=== PATIENT | female | born 1990 ===

== ENCOUNTER 2017-04-13 13:06 | Emergency (ER) | payer MEDICAID ==
[2017-04-13 13:21] VITALS: BP 104/70; PULSE 50; RESP 19; TEMP 98.2; O2SAT 98
--- NOTE | 2017-04-13 13:59 | ED PDOC ---
Arrival/HPI - General Chief Complaint: Wound Check Time Seen by Provider: 04/13/17 13:26 Historian: Patient, Spouse - History of Present Illness Narrative History of Present Illness (Text): 04/13/17 13:26 This 27 yo presents to this ED for wound check. Patient stated she had a facial laceration repaired x 2 days, and she was recommended to have wound check in 2 days. Patient stated wound is healing well. Denies new complains. Time/Duration: < week Past Medical History - Provider Review Nursing Documentation Reviewed: Yes - Infectious Disease Hx of Infectious Diseases: None - Psychiatric Hx Substance Use: No - Surgical History Other/Comment: 1 vaginal - Anesthesia Hx Anesthesia: No Family/Social History - Physician Review Nursing Documentation Reviewed: Yes Family/Social History: No Known Family HX Smoking Status: Never Smoked Hx Alcohol Use: Yes Frequency of alcohol use: Socially Hx Substance Use: No Allergies/Home Meds Allergies/Adverse Reactions: Allergies No Known Allergies Allergy (Verified 04/13/17 13:14) Home Medications: Home Meds Medication Instructions Recorded Confirmed Cephalexin [Keflex] 500 mg PO DAILY 04/13/17 04/13/17 Ibuprofen [Motrin Tab] 600 mg PO DAILY 04/13/17 04/13/17 Review of Systems - Review of Systems Constitutional: Normal. absent: Fatigue, Weight Change, Fevers Eyes: Normal ENT: Normal Respiratory: Normal Cardiovascular: Normal Gastrointestinal: Normal Genitourinary Female: Normal Musculoskeletal: Normal Skin: Other (Facial wound recheck) Neurological: Normal Endocrine: Normal Hemo/Lymphatic: Normal Psychiatric: Normal Physical Exam Vital Signs Temp Pulse Resp BP Pulse Ox 04/13/17 13:21 98.2 F 50 L 19 104/70 98 Temperature: Afebrile Blood Pressure: Normal Pulse: Regular Respiratory Rate: Normal Appearance: Positive for: Well-Appearing, Non-Toxic, Comfortable Pain Distress: None Mental Status: Positive for: Alert and Oriented X 3 - Systems Exam Head: Present: Normocephalic, Ecchymosis (right inferior orbital area. No raccoon sign. no batle sign), Other ((+) healing wound right forehead, absorbable sutures) Pupils: Present: PERRL, Other (no hyphema) Extroacular Muscles: Present: EOMI Conjunctiva: Present: Normal Mouth: Present: Moist Mucous Membranes Neck: Present: Normal Range of Motion Upper Extremity: Present: Normal Inspection, Normal ROM, NORMAL PULSES, Neurovascularly Intact, Capillary Refill < 2s Lower Extremity: Present: Normal Inspection, NORMAL PULSES, Normal ROM Neurological: Present: GCS=15, CN II-XII Intact, Speech Normal, Motor Func Grossly Intact, Normal Sensory Function, Normal Cerebellar Funct, Norm Deep Tendon Reflexes, Gait Normal, Memory Normal, Other (No neuro focal deficits) Skin: Present: Warm, Dry, Normal Color. No: Rashes Psychiatric: Present: Alert, Oriented x 3 Medical Decision Making ED Course and Treatment: 04/13/17 14:01 Re-evaluation. Patient feels better. Discussed results and plan with patient who expresses understanding. All questions answered and there is agreement with the plan to discharge home with instructions. Patient stable for discharge. Return if symptoms persist or worsen. Follow up visit plastic surgeon as instructed. Return to emergency if wound becomes infected, drainage or erythema Re-evaluation Time: 14:00 Reassessment Condition: Re-examined, Improved Disposition/Present on Arrival - Present on Arrival Any Indicators Present on Arrival: No History of DVT/PE: No History of Uncontrolled Diabetes: No Urinary Catheter: No History of Decub. Ulcer: No History Surgical Site Infection Following: None - Disposition Have Diagnosis and Disposition been Completed?: Yes Diagnosis: Encounter for wound re-check Disposition: HOME/ ROUTINE Disposition Time: 14:02 Patient Plan: Discharge Condition: GOOD Discharge Instructions (ExitCare): Facial Laceration (ED) Additional Instructions: Call private doctor for follow up visit in 1-2 days. Take medication as instructed. Avoid sun light exposure. Clean wound with soap and water and apply Bacitracin ointment. Return to emergency if wound becomes redness, drainage, swelling or worsen. cover wound with gauze or band aid Referrals: [facility], [place] [Outside] - Follow up with primary [facility] [Outside] - Follow up with primary PCP,NO [Primary Care Provider] - Follow up with primary Kaur Iraheta MD [Non-Staff] - Follow up with primary
== END 2017-04-13 14:14 | disposition home or self-care (01) ==
LOC: ED 13:06
DX: Z51.89 Encounter for other specified aftercare (principal)